=== PATIENT | female | born 1960 | race Caucasian/White ===

== ENCOUNTER 2022-10-20 12:19 | Emergency (ER) | payer OTHER ==
[2022-10-20 12:39] VITALS: BP 134/59
[2022-10-20] MEDS ORDERED: VOLTAREN1%GEL TOP (15:05)
[2022-10-20] MEDS ORDERED: NAPROXEN500 MG PO (15:05)
[2022-10-20 15:47] VITALS: BP 134/59
== END 2022-10-20 15:48 | disposition home or self-care (01) | DRG 556 ==
LOC: ED 12:19
DX: M79.604 Pain in right leg (principal)